=== PATIENT | male | born 1960 | race Hispanic/Latino ===

== ENCOUNTER 2017-06-07 09:10 | Emergency (ER) | payer SELFPAY ==
[2017-06-07 10:00] VITALS: BP 148/59
--- NOTE | 2017-06-07 12:05 | Emergency Department Report ---
ED Extremity Problem HPI - General Chief complaint: Extremity Injury, Lower Stated complaint: RIGHT FOOT PAIN Time Seen by Provider: 06/07/17 11:51 Source: patient Mode of arrival: Ambulatory Limitations: Physical Limitation - History of Present Illness Initial comments: Patient here reported that he had injury to his left great toe 18 days ago where 800 pound equipment fell on his left great toe. He said he was wearing boots but it was not a steel toe boots. Patient states saw his primary care physician and was told that toenail needs to be removed so he is here to have is left great toenail removed. Patient did not have a x-ray after incident occurred. He reports pain is 4-10 worst of movement better with resting. He said he takes [id number] pain medication. He said his primary care put him on Keflex for 7 days after the accident. Denies any fever or chills. Denies any radiation of pain up to his foot, ankle leg. He said he had a tetanus shot 5 years ago. MD Complaint: extremity pain, other (pain to left great toenail, nailbed injury) Onset/Timin -: days(s) Location: left, toe (left great toe) -: No myalgia, Yes arthralgia, No fever, No associated chest pain Radiation: none Severity scale (0 -10): 5 Quality: other (throbbing) Consistency: intermittent Improves with: immobilization, rest Worsens with: weight bearing, walking, palpation Associated Symptoms: arthralgias, other (left great toe with nail damage and infection). denies: chest pain, shortness of breath, myalgias - Related Data Home Medications Medication Instructions Recorded Confirmed Last Taken Cyclobenzaprine HCl [Flexeril] 1 tab PO QHS PRN 10/17/13 10/17/13 10/15/13 21:00 HYDROcodone/APAP 5-325 [[place] 1 tab PO Q4-6H PRN 10/17/13 10/17/13 10/17/13 06: 00 5-325 mg TAB] Previous Rx's Medication Instructions Recorded Last Taken Type Sulfamethoxazole/Trimethoprim 1 each PO BID 10 Days #20 tablet 06/07/17 Unknown Rx [Bactrim DS TAB] traMADol [Ultram] 50 mg PO Q6HR PRN 4 Days #20 tablet 06/07/17 Unknown Rx Allergies Allergy/AdvReac Type Severity Reaction Status Date / Time No Known Allergies Allergy Verified 06/07/17 09:54 ED Review of Systems ROS: Stated complaint: RIGHT FOOT PAIN Other details as noted in HPI Comment: All other systems reviewed and negative Constitutional: no symptoms reported Respiratory: no symptoms reported Cardiovascular: denies: chest pain, palpitations, dyspnea on exertion, edema, syncope Gastrointestinal: denies: abdominal pain, nausea, vomiting Musculoskeletal: arthralgia, other (left great toe pain). denies: back pain, joint swelling, myalgia Skin: change in hair/nails (left great toe), other (left great toe infection) Neurological: denies: headache, weakness, numbness, paresthesias, confusion, abnormal gait, vertigo ED Past Medical Hx - Past Medical History Previous Medical History?: Yes Hx Hypertension: Yes - Surgical History Past Surgical History?: Yes Additional Surgical History: right knee surgery 1986 - Family History Family history: hypertension - Social History Smoking Status: Current Every Day Smoker Substance Use Type: Alcohol - Medications Home Medications: Home Medications Medication Instructions Recorded Confirmed Last Taken Type Cyclobenzaprine HCl [Flexeril] 1 tab PO QHS PRN 10/17/13 10/17/13 10/15/13 21: 00 History HYDROcodone/APAP 5-325 [[place] 1 tab PO Q4-6H PRN 10/17/13 10/17/13 10/17/13 06: 00 History 5-325 mg TAB] Sulfamethoxazole/Trimethoprim 1 each PO BID 10 Days #20 tablet 06/07/17 Unknown Rx [Bactrim DS TAB] traMADol [Ultram] 50 mg PO Q6HR PRN 4 Days #20 tablet 06/07/17 Unknown Rx ED Physical Exam - General Limitations: No Limitations General appearance: alert, in no apparent distress - Head Head exam: Present: atraumatic, normocephalic, normal inspection - Eye Eye exam: Present: normal appearance, PERRL, EOMI Pupils: Present: normal accommodation - Neck Neck exam: Present: normal inspection, full ROM, other (no C-spine tenderness). Absent: tenderness, meningismus, lymphadenopathy, thyromegaly - Respiratory Respiratory exam: Present: normal lung sounds bilaterally. Absent: respiratory distress, chest wall tenderness - Cardiovascular Cardiovascular Exam: Present: regular rate, normal rhythm, normal heart sounds. Absent: systolic murmur, diastolic murmur - GI/Abdominal GI/Abdominal exam: Present: soft, normal bowel sounds. Absent: distended, tenderness, guarding, rebound, rigid - Extremities Exam Extremities exam: Present: normal inspection, full ROM, tenderness (tender to palpate the left great toe), normal capillary refill, other (no clubbing, cyanosis or edema to extremities. +2 pulses to all extremities. No neurovascular compromise.). Absent: pedal edema, joint swelling, calf tenderness - Expanded Lower Extremity Exam Left Hip exam: Present: normal inspection, full ROM, pelvic stability. Absent: tenderness, swelling, abrasion, laceration, ecchymosis, deformity, crepidus, dislocation, erythema, external rotation, internal rotation, shortening Upper Leg exam: Present: normal inspection, full ROM. Absent: tenderness, swelling, abrasion, laceration, ecchymosis, deformity, crepidus, dislocation, erythema Knee exam: Present: normal inspection, full ROM, full knee extension. Absent: tenderness, swelling, abrasion, laceration, ecchymosis, deformity, crepidus, dislocation, erythema, effusion, pain w/ pronation/supination, posterior draw sign, pain/laxity with valgus, pain/laxity with varus Lower Leg exam: Present: normal inspection, full ROM. Absent: tenderness, swelling, abrasion, laceration, ecchymosis, deformity, crepidus, dislocation, erythema, palpable cord, Michel's sign Ankle exam: Present: normal inspection, full ROM. Absent: tenderness, swelling , abrasion, laceration, ecchymosis, deformity, crepidus, dislocation, erythema Foot/Toe exam: Present: full ROM (patient with full range of motion but painful with movement to left great toe), tenderness (around left great toe F great toe) , swelling (left great toe), erythema, nail avulsion (left great toe with nail injury. Upon removal of dressing to left great toe, nail came off with dressing. Nailbed cellulitis. Tender to palpate. No drainage. Swelling surrounding the left great toe). Absent: normal inspection (great toe with infection), abrasion, laceration, ecchymosis, deformity, crepidus, dislocation, amputation, puncture wound, foreign body, calcaneal tenderness, tenderness at base of 5th metatarsal Neuro vascular tendon exam: Present: no vascular compromise. Absent: pulse deficit, abnormal cap refill, motor deficit, sensory deficit, tendon deficit, extremity cold to touch, pallor, abnormal 2-point discrimination, decreased fine /light touch, foot drop, peroneal nerve deficit, significant pain with passive ROM of distal joint Gait: Positive: observed and limited by pain - Back Exam Back exam: Present: normal inspection, full ROM. Absent: tenderness, CVA tenderness (R), CVA tenderness (L), muscle spasm, paraspinal tenderness, vertebral tenderness, rash noted - Neurological Exam Neurological exam: Present: alert, oriented X3, normal gait, reflexes normal. Absent: motor sensory deficit - Psychiatric Psychiatric exam: Present: normal affect, normal mood - Skin Skin exam: Present: warm, dry, ecchymosis (.), other (patient with nail to left great toe avulsion, nail bed erythema, tender to palpate, swelling around the left great toe). Absent: rash, cyanosis, petechiae, pallor, abrasion - Expanded Skin Exam Expanded Type of lesion: Present: other (cellulitis left great toe) Distribution of rash: other (left great toe) Description of rash: Present: tenderness, erythematous, swelling. Absent: bullous, petechial, purpuic, urticarial, crusting, discharge, fluctuant, indurated ED Course Vital Signs 06/07/17 09:54 Temperature 98.5 F Pulse Rate 95 H Respiratory 17 Rate Blood Pressure 148/59 O2 Sat by Pulse 100 Oximetry - Reevaluation(s) Reevaluation #1: 06/07/17 14:24 Patient given clindamycin 600 mg IM, Boostrix 0.5 mL in emergency room without any adverse reaction. - Orthopedic Splinting/Casting Injury #1 Side: left Lower Extremity Injury Location: foot, toe Lower Extremity Immobilizer: post-op shoe Additional Comments: Pedal Pulses are 2+ without any neurovascular compromise to the left great toe. ED Medical Decision Making - Radiology Data Radiology results: report reviewed X-ray of right foot reveals subacute traumatic closed avulsion fracture of the terminal tuft of the distal phalanx of the great toe just consistent with patient injury 18 days ago. - Medical Decision Making ED course: She presents into the emergency room for injury to right great toe. He reports pain and was sent to the emergency room by his primary care physician to have nail removed from right great toe. Upon removing dressing from the right great toe, noted that nail that came off with dressing removal. Right gait toe appears infected, with redness, swelling to nail bed and also around toe. Pt with bony tenderness to right great toe. X-ray revealed the patient has subacute traumatic close avulsion fracture of tuft of the distal findings of right great toe. Patient was given clindamycin 600 mg IM and booster 0.5 mL IM in emergency room without any adverse reaction. I spoke with Dr. Barraza regarding patient presentation, complaints, x-ray findings and he directed me to call language specialist. I spoke with Dr. Sanchez who is the language specialist on-call and he wants patient to call his office for follow-up visit and also wants patient to have a postop shoe. Postop shoe provided C procedure note for detail. I discussed the patient that he'll need to follow up with Dr. Sanchez regarded in further evaluation and treatment. Patient voiced understanding of diagnosis and treatment plan and discharged home with prescription for Bactrim DS and Ultram. Patient had right great toe soaked, cleansed with saline, Neosporin ointment applied followed by Xeroform and gauze dressing. Critical care attestation.: If time is entered above; I have spent that time in minutes in the direct care of this critically ill patient, excluding procedure time. ED Disposition Clinical Impression: Cellulitis of great toe, right, Other fracture of right great toe, initial encounter for closed fracture, Avulsion of toenail of right foot, Pain of right great toe Disposition: DC-01 TO HOME OR SELFCARE Is pt being admited?: No Does the pt Need Aspirin: No Condition: Stable Instructions: Arthralgia (ED), Toe Fracture (ED), Cellulitis (ED) Additional Instructions: Please follow up with primary care as recommended Increase fluid intake Take medication as prescribed . please do not drive or operate heavy machinery while taking Ultram as this medication causes drowsiness These follow-up with orthopedic doctor or language specialist who is a specialist for further evaluation and treatment . Referred to discharge instruction for acute wound care Please keep affected area clean and dry Take antibiotic as prescribed Please return to emergency room if you develop increasing redness, streaking, fever, difficulty moving in and the left forearm and increase in pain. Prescriptions: Sulfamethoxazole/Trimethoprim [Bactrim DS TAB] 1 each PO BID 10 Days #20 tablet traMADol [Ultram] 50 mg PO Q6HR PRN 4 Days #20 tablet PRN Reason: Pain Referrals: JESSICA SANCHEZ DPM [Staff Physician] - 2-3 Days ALEXANDER BARRIGA MD [Staff Physician] - 2-3 Days your, primary care physician [Other] - 2-3 Days Forms: Work/School Release Form(ED)
--- NOTE | 2017-06-07 13:13 | XRay Report ---
X-RAY RIGHT FOOT 2 VIEWS: 06/07/17 12:05:00 CLINICAL: Trauma to the great toe. An 800 pound object fell on his toe eighteen days ago. FINDINGS: Avulsion fracture of the medial aspect of the terminal tuft of the great toe. No other fracture. There is soft tissue swelling. No soft tissue air or foreign body. The joint spaces of the great toe are normal. IMPRESSION: Subacute traumatic closed avulsion fracture of the terminal tuft of the distal phalanx of the great toe.
[2017-06-07] MEDS ORDERED: CLEOCIN IM ONE (13:36)
[2017-06-07] MEDS ORDERED: BOOSTRIX IM ONE (13:51)
[2017-06-07] MEDS ORDERED: TRIPLE ANTIBIOTIC TP ONE (13:52)
== END 2017-06-07 15:19 | disposition home or self-care (01) ==
LOC: ED 09:10
DX: S91.201A Unspecified open wound of right great toe with damage to nail, initial encounter (principal); L03.031 Cellulitis of right toe; I10 Essential (primary) hypertension; F17.200 Nicotine dependence, unspecified, uncomplicated; S92.421A Displaced fracture of distal phalanx of right great toe, initial encounter for closed fracture; W31.89XA Contact with other specified machinery, initial encounter; Y93.89 Activity, other specified; Y92.89 Other specified places as the place of occurrence of the external cause; Y99.8 Other external cause status
CPT/HCPCS: 90471; 90715; 96372; 99283; A6250

== ENCOUNTER 2019-04-11 09:15 | Observation (INO) | payer OTHER, SELFPAY ==
[2019-04-11] MEDS ORDERED: SODIUM CHLORIDE 0.9% 1000 ML 1,000 ML IV ONE (10:18)
[2019-04-11] MEDS ORDERED: ONDANSETRON 4 MG/2 ML INJ IV ONE (10:18)
[2019-04-11] MEDS ORDERED: MORPHINE 4 MG/1 ML INJ IV ONE (10:31)
--- NOTE | 2019-04-11 10:33 | Emergency Department Report ---
ED Abdominal Pain HPI - General Chief Complaint: Abdominal Pain Stated Complaint: BODY PAIN/NOT EATING Time Seen by Provider: 04/11/19 10:17 Source: patient Mode of arrival: Wheelchair Limitations: No Limitations - History of Present Illness Initial Comments: 58-year-old male with hypertension and throat cancer currently in remission treated with radiation therapy in December presents to the hospital complaints of abdominal pain and nausea 4-5 weeks. Patient complains of intermittent sharp abdominal pains that start in the mid abdomen and radiates throughout. Pain is worse with palpation. No alleviating factors reported. Positive nausea without vomiting. Patient has decreased by mouth intake due to nausea and has been trying to drink protein drinks. He denies that eating makes the pain worse. No complaints of fever, dysuria, urinary retention, diarrhea, melena, or hematochezia. He denies history of previous abdominal surgeries. Patient also complains of injury to his left middle finger after fall 5 weeks ago. Finger is swollen and deformed but nonpainful. Patient has never had him evaluated by a doctor since initial injury. Severity scale (0 -10): 10 - Related Data Home Medications Medication Instructions Recorded Confirmed Last Taken Cyclobenzaprine HCl [Flexeril] 1 tab PO QHS PRN 10/17/13 10/17/13 10/15/13 21:00 HYDROcodone/APAP 5-325 [[place] 1 tab PO Q4-6H PRN 10/17/13 10/17/13 10/17/13 06:00 5-325 mg TAB] Previous Rx's Medication Instructions Recorded Last Taken Type Sulfamethoxazole/Trimethoprim 1 each PO BID 10 Days #20 tablet 06/07/17 Unknown Rx [Bactrim DS TAB] traMADol [Ultram] 50 mg PO Q6HR PRN 4 Days #20 tablet 06/07/17 Unknown Rx Allergies Allergy/AdvReac Type Severity Reaction Status Date / Time No Known Allergies Allergy Verified 06/07/17 09:54 ED Review of Systems ROS: Stated complaint: BODY PAIN/NOT EATING Other details as noted in HPI Comment: All other systems reviewed and negative ED Past Medical Hx - Past Medical History Hx Hypertension: Yes - Surgical History Additional Surgical History: right knee surgery 1986 - Social History Smoking Status: Current Every Day Smoker Substance Use Type: Alcohol - Medications Home Medications: Home Medications Medication Instructions Recorded Confirmed Last Taken Type Cyclobenzaprine HCl [Flexeril] 1 tab PO QHS PRN 10/17/13 10/17/13 10/15/13 21:00 History HYDROcodone/APAP 5-325 [[place] 1 tab PO Q4-6H PRN 10/17/13 10/17/13 10/17/13 06:00 History 5-325 mg TAB] Sulfamethoxazole/Trimethoprim 1 each PO BID 10 Days #20 tablet 06/07/17 Unknown Rx [Bactrim DS TAB] traMADol [Ultram] 50 mg PO Q6HR PRN 4 Days #20 tablet 06/07/17 Unknown Rx ED Physical Exam - General Limitations: No Limitations - Other Other exam information: Gen.: No acute distress Head: Atraumatic Eyes: Normal appearance, nonicteric sclera ENT: Moist mucous membranes Neck: Normal appearance, no posterior midline tenderness, no meningismus Chest: Clear to auscultation bilaterally Cardiovascular: Tachycardic regular rhythm Abdomen: Normal appearance, soft, mid and lower abdominal tenderness, no rebound or guarding, normal bowel sounds Back: Normal appearance, nontender Extremity: Left middle finger swelling starting at the P I P joint with deformity. Nontender, no warmth or erythema. Very limited Limited flexion and extension Neuro: Alert, oriented 3 clear speech, no focal motor or sensory deficit Psychiatric: Appropriate Skin: No rash ED Course Vital Signs 04/11/19 04/11/19 04/11/19 09:25 10:14 11:00 Temperature 98.1 F Pulse Rate 119 H 98 H Respiratory 18 14 Rate Blood Pressure 159/109 Blood Pressure 130/94 [Left] O2 Sat by Pulse 99 99 100 Oximetry 04/11/19 04/11/19 04/11/19 12:00 12:35 12:37 Temperature 98.3 F Pulse Rate 92 H 81 Respiratory 15 15 15 Rate Blood Pressure 164/93 Blood Pressure 145/95 [Left] O2 Sat by Pulse 98 99 99 Oximetry ED Medical Decision Making - Lab Data Result diagrams: 04/11/19 10:37 04/11/19 10:37 Lab Results 04/11/19 04/11/19 04/11/19 Range/Units 10:37 10:37 12:37 WBC 6.7 (4.5-11.0) K/mm3 RBC 4.51 (3.65-5.03) M/mm3 Hgb 14.8 (11.8-15.2) gm/dl Hct 43.8 (35.5-45.6) % MCV 97 H (84-94) fl MCH 33 H (28-32) pg MCHC 34 (32-34) % RDW 15.8 H (13.2-15.2) % Plt Count 457 H (140-440) K/mm3 Lymph % (Auto) 5.2 L (13.4-35.0) % Daniels % (Auto) 8.7 H (0.0-7.3) % Eos % (Auto) 1.7 (0.0-4.3) % Baso % (Auto) 1.0 (0.0-1.8) % Lymph # 0.3 L (1.2-5.4) K/mm3 Daniels # 0.6 (0.0-0.8) K/mm3 Eos # 0.1 (0.0-0.4) K/mm3 Baso # 0.1 (0.0-0.1) K/mm3 Seg Neutrophils % 83.4 H (40.0-70.0) % Seg Neutrophils # 5.6 (1.8-7.7) K/mm3 Sodium 139 (137-145) mmol/L Potassium 5.0 (3.6-5.0) mmol/L Chloride 99.2 (98-107) mmol/L Carbon Dioxide 24 (22-30) mmol/L Anion Gap 21 mmol/L BUN 10 (9-20) mg/dL Creatinine 0.7 L (0.8-1.5) mg/dL Estimated GFR > 60 ml/min BUN/Creatinine Ratio 14 % Glucose 108 H (75-100) mg/dL Calcium 9.7 (8.4-10.2) mg/dL Magnesium 2.20 (1.7-2.3) mg/dL Total Bilirubin 0.30 (0.1-1.2) mg/dL AST 12 (5-40) units/L ALT 10 (7-56) units/L Alkaline Phosphatase 81 (35-129) units/L Total Protein 7.7 (6.3-8.2) g/dL Albumin 4.1 (3.9-5) g/dL Albumin/Globulin Ratio 1.1 % Lipase 23 (13-60) units/L Urine Color Straw (Yellow) Urine Turbidity Clear (Clear) Urine pH 7.0 (5.0-7.0) Ur Specific [place] 1.005 (1.003-1.030) Urine Protein <15 mg/dl (Negative) mg/dL Urine Glucose (UA) Neg (Negative) mg/dL Urine Ketones Neg (Negative) mg/dL Urine Blood Neg (Negative) Urine Nitrite Neg (Negative) Urine Bilirubin Neg (Negative) Urine Urobilinogen < 2.0 (<2.0) mg/dL Ur Leukocyte Esterase Neg (Negative) Urine WBC (Auto) 1.0 (0.0-6.0) /HPF Urine RBC (Auto) 1.0 (0.0-6.0) /HPF U Epithel Cells (Auto) < 1.0 (0-13.0) /HPF Urine Bacteria (Auto) 1+ (Negative) /HPF - Radiology Data Radiology results: report reviewed CT ABDOMEN AND PELVIS WITH CONTRAST HISTORY: Abdominal pain and nausea for one day COMPARISON: None. TECHNIQUE: Axial CT images were obtained through the abdomen and pelvis after 100 cc of Omnipaque 300 intravenously. Sagittal and coronal reformatted images. All CT scans at this location are performed using CT dose reduction for [employer] by means of automated exposure control. FINDINGS: CT ABDOMEN: Lung Bases: Clear. Liver: No significant abnormality. Biliary: No significant abnormality. Spleen: No significant abnormality. Unenlarged. Pancreas: No significant abnormality. Adrenals: No significant abnormality. Kidneys: No significant abnormality. Lymphatics: No lymphadenopathy. Vasculature: Mild to moderate distal aortic and iliac calcifications. No aneurysm Bowel/Peritoneum: There is impressive thickening of the gastric mucosa particularly in the proximal stomach. There appears to be an area of ulceration in the posterior gastric wall measuring 2-3 cm in diameter. There is no evidence for obstruction, free air or abscess. Small bowel loops and colon are normal caliber. There are a few scattered diverticula in the cecum and ascending colon. No acute inflammation. Normal appendix. CT PELVIS: : The bladder, distal ureters and prostate gland are unremarkable. Osseous Structures: Mild thoracolumbar spondylosis. No fracture or suspicious bony lesion. Additional Findings: None IMPRESSION: Abnormal stomach. There is impressive gastric mucosal thickening consistent with gastritis. An ulcer is suspected in the posterior gastric wall as described. No obvious signs of perforation at this time. These findings appear to be related to peptic ulcer disease. Gastric neoplasm is thought less likely but is not entirely excluded. - Medical Decision Making Patient's tachycardia improved with IV fluids. Patient also received morphine [address] shows stomach abnormality consistent with gastritis, versus gastric ulcer versus stomach cancer. Iv protonix x 1 given. Case discussed with GI. Requests nothing by mouth after midnight with plan to scope in a.m. - Differential Diagnosis diverticulitis, gastritis, peptic ulcer disease Critical Care Time: No Critical care attestation.: If time is entered above; I have spent that time in minutes in the direct care of this critically ill patient, excluding procedure time. ED Disposition Clinical Impression: Gastritis, Abdominal pain, Dehydration, Abnormal CT of the abdomen Disposition: DC-09 OP ADMIT IP TO THIS HOSP Is pt being admited?: No Condition: Stable Time of Disposition: 14:39 (Dr Christopher/hospitalist)
[2019-04-11] MEDS ORDERED: MORPHINE 2 MG/1 ML INJ ONE (10:43)
[2019-04-11] MEDS ORDERED: MORPHINE 2 MG/1 ML INJ IV ONE (10:54)
[2019-04-11 11:08] LABS: Basophils # (Auto) 0.1 K/mm3 (0.0-0.1); Eosinophils # (Auto) 0.1 K/mm3 (0.0-0.4); Eosinophils % (Auto) 1.7 % (0.0-4.3); Hematocrit 43.8 % (35.5-45.6); Hemoglobin 14.8 gm/dl (11.8-15.2); Lymphocytes # (Auto) 0.3 K/mm3 (1.2-5.4); Lymphocytes % (Auto) 5.2 % (13.4-35.0); Mean Corpuscular HGB Conc 34 % (32-34); Mean Corpuscular Volume 97 fl (84-94); Monocytes # (Auto) 0.6 K/mm3 (0.0-0.8); Monocytes % (Auto) 8.7 % (0.0-7.3); Platelet Count 457 K/mm3 (140-440); Red Blood Count 4.51 M/mm3 (3.65-5.03); Red Cell Distribution Width 15.8 % (13.2-15.2)
[2019-04-11 11:30] LABS: Alanine Aminotransferase 10 units/L (7-56); Albumin 4.1 g/dL (3.9-5); BUN/Creatinine Ratio 14; Blood Urea Nitrogen 10 mg/dL (9-20); Calcium 9.7 mg/dL (8.4-10.2); Hemolysis Index 7
[2019-04-11 14:02] LABS: Bacteria,Urine 1+ /HPF (Negative); Bilirubin,Urine NEG (Negative); Blood,Urine NEG (Negative); Color,Urine Straw (Yellow); Protein,Urine <15 mg/dL mg/dL (Negative); Urobilinogen,Urine < 2.0 mg/dL (<2.0)
--- NOTE | 2019-04-11 14:08 | Cat Scan Report ---
CT ABDOMEN AND PELVIS WITH CONTRAST HISTORY: Abdominal pain and nausea for one day COMPARISON: None. TECHNIQUE: Axial CT images were obtained through the abdomen and pelvis after 100 cc of Omnipaque 300 intravenously. Sagittal and coronal reformatted images. All CT scans at this location are performed using CT dose reduction for [employer] by means of automated exposure control. FINDINGS: CT ABDOMEN: Lung Bases: Clear. Liver: No significant abnormality. Biliary: No significant abnormality. Spleen: No significant abnormality. Unenlarged. Pancreas: No significant abnormality. Adrenals: No significant abnormality. Kidneys: No significant abnormality. Lymphatics: No lymphadenopathy. Vasculature: Mild to moderate distal aortic and iliac calcifications. No aneurysm Bowel/Peritoneum: There is impressive thickening of the gastric mucosa particularly in the proximal s tomach. There appears to be an area of ulceration in the posterior gastric wall measuring 2-3 cm in d iameter. There is no evidence for obstruction, free air or abscess. Small bowel loops and colon are n ormal caliber. There are a few scattered diverticula in the cecum and ascending colon. No acute infla mmation. Normal appendix. CT PELVIS: : The bladder, distal ureters and prostate gland are unremarkable. Osseous Structures: Mild thoracolumbar spondylosis. No fracture or suspicious bony lesion. Additional Findings: None IMPRESSION: Abnormal stomach. There is impressive gastric mucosal thickening consistent with gastritis. An ulcer is suspected in the posterior gastric wall as described. No obvious signs of perforation at this angel e. These findings appear to be related to peptic ulcer disease. Gastric neoplasm is thought less like ly but is not entirely excluded. Signer Name: Peter Cuevas Jr, MD Signed: 04/11/2019 2:04 PM Workstation Name: [id number]
[2019-04-11] MEDS ORDERED: PANTOPRAZOLE 40 MG INJ IV ONE (14:18)
--- NOTE | 2019-04-11 15:07 | History and Physical Report ---
History of Present Illness Chief complaint: My stomach hurts History of present illness: 58 YO Male with HTN, Oral Cancer S/P Radiation Therapy,Nicotine Dependence, Malnutrition presents to ED for evaluation. Pt states that he has experienced abdominal pain over the past 4-5 weeks. Pt states that pain is intermittent. 6- 10/10, located in the hypogastric area, and radiates throughout his entire abdomen, associated with nausea. Pt acknowledges 25lbs weight loss over the past 6 weeks. Pt states that pain is worse with palpation. Pt transported to [facility] via private vehicle. Pt seen and evaluated in ED and found to have abnormality on CT scan of the abdomen. Pt placed in observation status. GI consulted in ED. Pt pen ding endoscopy in AM. Pt denies fever, dysuria, chills, chest pain, palpitations, NVD, Melena, or hematochezia. No prior admission for review. No medication listed for reconciliation at time of admission. Past History Past Medical History: cancer, hypertension Past Surgical History: total knee replacement Social history: , smoking Family history: hypertension Medications and Allergies Allergies Allergy/AdvReac Type Severity Reaction Status Date / Time No Known Allergies Allergy Verified 06/07/17 09:54 Home Medications Medication Instructions Recorded Confirmed Last Taken Type Bisoprolol/Hctz [Ziac 2.5-6.25] 1 each PO DAILY 04/11/19 04/11/19 04/02/19 History LORazepam [Ativan] 1 mg PO QHS 04/11/19 04/11/19 04/02/19 History Review of Systems Constitutional: weight loss, no weight gain, no fever, no chills Ears, nose, mouth and throat: no ear pain, no ear discharge, no tinnitis, no decreased hearing, no nose pain, no nasal congestion Cardiovascular: no chest pain, no orthopnea, no rapid/irregular heart beat, no edema, no syncope Respiratory: no cough, no cough with sputum, no excessive sputum, no hemoptysis, no dyspnea on exertion Gastrointestinal: abdominal pain, nausea, no diarrhea, no constipation, no change in bowel habits, no hematemesis, no melena, no hematochezia, no loss of appetite Genitourinary Male: no hematuria, no flank pain, no discharge, no urinary frequency, no urinary hesitancy, no nocturia Rectal: no pain, no incontinence, no bleeding Musculoskeletal: no neck stiffness, no neck pain, no shooting arm pain, no arm numbness/tingling, no low back pain, no leg numbness/tingling Integumentary: no rash, no pruritis, no redness, no wounds, no jaundice, no blisters Neurological: no head injury, no transient paralysis, no weakness, no parathesias, no tingling Psychiatric: no anxiety, no memory loss, no change in sleep habits, no sleep disturbances, no insomnia, no hypersomnia, no change in appetite, no suicidal ideation Hematologic/Lymphatic: no easy bruising, no easy bleeding, no lymphadenopathy, no lymphedema Allergic/Immunologic: no urticaria, no allergic rhinitis, no persistent infections, no angioedema Exam - Constitutional Vitals: Temp Pulse Resp BP Pulse Ox 98.3 F 81 15 145/95 99 04/11/19 12:35 04/11/19 12:35 04/11/19 12:37 04/11/19 12:35 04/11/19 12:37 General appearance: Present: mild distress, cachectic - EENT Eyes: Present: PERRL ENT: hearing intact, clear oral mucosa - Neck Neck: Present: supple, normal ROM - Respiratory Respiratory effort: normal Respiratory: bilateral: CTA - Cardiovascular Heart Sounds: Present: S1 & S2. Absent: rub, click - Extremities Extremities: pulses symmetrical, No edema Peripheral Pulses: within normal limits - Abdominal General gastrointestinal: Present: soft, non-tender, non-distended, normal bowel sounds Male genitourinary: Present: normal - Integumentary Integumentary: Present: clear, warm, dry - Musculoskeletal Musculoskeletal: gait normal, strength equal bilaterally - Psychiatric Psychiatric: appropriate mood/affect, intact judgment & insight - Neurologic Neurologic: CNII-XII intact, moves all extremities Results - Labs CBC & Chem 7: 04/11/19 10:37 04/11/19 10:37 Labs: Abnormal lab results 04/11/19 04/11/19 Range/Units 10:37 10:37 MCV 97 H (84-94) fl MCH 33 H (28-32) pg RDW 15.8 H (13.2-15.2) % Plt Count 457 H (140-440) K/mm3 Lymph % (Auto) 5.2 L (13.4-35.0) % [place] % (Auto) 8.7 H (0.0-7.3) % Lymph # 0.3 L (1.2-5.4) K/mm3 Seg Neutrophils % 83.4 H (40.0-70.0) % Creatinine 0.7 L (0.8-1.5) mg/dL Glucose 108 H (75-100) mg/dL Assessment and Plan - Patient Problems (1) Malnutrition Current Visit: Yes Status: Acute Qualifiers: Protein-calorie malnutrition severity: severe Plan to address problem: Encourage increased protein intake, dietary supplementation. (2) Nicotine dependence Current Visit: Yes Status: Acute Qualifiers: Substance use status: in withdrawal Plan to address problem: Smoking cessation counseling,+15 minutes. supportive care. (3) Abdominal pain Current Visit: Yes Status: Acute Qualifiers: Abdominal location: generalized Qualified Code(s): R10.84 - Generalized abdominal pain Plan to address problem: Serial abdominal exam, supportive care, CT Abdomen pelvis, GI consulted in ED, (4) Abnormal CT of the abdomen Current Visit: Yes Status: Acute Plan to address problem: CT Abdomen/Pelvis, pain control, NPO after midnight, pending endoscopy in AM. (5) Gastritis Current Visit: Yes Status: Acute Qualifiers: Gastritis type: other gastritis Plan to address problem: GI consulted, Endoscopy in AM. (6) DVT prophylaxis Current Visit: Yes Status: Acute Plan to address problem: SCD to BLE while in bed. Pt ambulatory
[2019-04-11] MEDS ORDERED: ACETAMINOPHEN 325 MG TAB PO PRN (15:09)
[2019-04-11] MEDS ORDERED: ALBUTEROL 2.5 MG/3 ML NEBU IH PRN (15:09)
[2019-04-11] MEDS ORDERED: ONDANSETRON 4 MG/2 ML INJ IV PRN (15:09)
--- NOTE | 2019-04-11 15:14 | XRay Report ---
Left fingers, 3 views INDICATION: middle finger injury 5 weeks ago. COMPARISON: None. IMPRESSION: Severe osteopenia. Posterior dislocation is identified at the PIP joint of the third di git. There is no obvious associated fracture. The remaining joint spaces are anatomic in alignment al though mild diffuse osteoarthritic changes are noted. The soft tissues are unremarkable. Signer Name: Peter Cuevas Jr, MD Signed: 04/11/2019 3:10 PM Workstation Name: [id number]
--- NOTE | 2019-04-11 19:59 | Gastroenterology Consultation ---
History of Present Illness - Reason for Consult Consult date: 04/11/19 abdominal pain, abnormal CT scan Requesting physician: GENEVIEVE HEATON - History of Present Illness This is a 58 yo male with pmh of tobacco use, throat cancer s/p radiation (last one in December 2018 and in remission per patient) presenting to the ED for worsening abdominal pain for past 4-5 weeks. Reports having mid and epigastric pain intermittently with sharp poking pain all over the abdomen. No associated vomiting but constant nausea. No diarrhea or blood in the stool. He has lost weight during this time. CT in the ED showed diffuse gastric wall thickening and signs of possible ulcer. No prior EGD or colonoscopy. Denies NSAID use. No family hx of GI cancer known. Medication list reviewed. Past History Past Medical History: cancer, hypertension Past Surgical History: total knee replacement Social history: , smoking Family history: hypertension Medications and Allergies Allergies Allergy/AdvReac Type Severity Reaction Status Date / Time No Known Allergies Allergy Verified 06/07/17 09:54 Home Medications Medication Instructions Recorded Confirmed Last Taken Type Bisoprolol/Hctz [Ziac 2.5-6.25] 1 each PO DAILY 04/11/19 04/11/19 04/02/19 History LORazepam [Ativan] 1 mg PO QHS 04/11/19 04/11/19 04/02/19 History Active Meds: Active Medications Acetaminophen (Tylenol) 650 mg PO Q4H PRN PRN Reason: Pain MILD(1-3)/Fever >100.5/DONIS Albuterol (Proventil) 2.5 mg IH Q4HRT PRN PRN Reason: Shortness Of Breath Ondansetron HCl (Zofran) 4 mg IV Q8H PRN PRN Reason: Nausea And Vomiting Sodium Chloride (Sodium Chloride Flush Syringe 10 Ml) 10 ml IV BID LIONEL Sodium Chloride (Sodium Chloride Flush Syringe 10 Ml) 10 ml IV PRN PRN PRN Reason: LINE FLUSH Review of Systems - Review of Systems All systems: negative Constitutional: weight loss Cardiovascular: no chest pain Gastrointestinal: abdominal pain, nausea, no vomiting, no diarrhea, no constipation, no BRBPR, no melena Musculoskeletal: joint pain Exam - Constitutional Vital Signs: Temp Pulse Resp BP Pulse Ox 98.3 F 96 H 18 129/79 99 04/11/19 16:59 04/11/19 16:59 04/11/19 16:59 04/11/19 16:59 04/11/19 16:59 General appearance: no acute distress - EENT Eyes: EOM intact ENT: hearing intact - Neck Neck: supple - Respiratory Respiratory effort: normal - Cardiovascular Rhythm: regular Heart Sounds: Present: S1 & S2 - Gastrointestinal General gastrointestinal: Present: soft, tender, non-distended, normal bowel sounds - Integumentary Integumentary: Present: clear, warm - Neurologic Neurological: alert and oriented x3 - Labs CBC & Chem 7: 04/11/19 10:37 04/11/19 10:37 Lab Results: Laboratory Results - last 24 hr 04/11/19 04/11/19 04/11/19 10:37 10:37 12:37 WBC 6.7 RBC 4.51 Hgb 14.8 Hct 43.8 MCV 97 H MCH 33 H MCHC 34 RDW 15.8 H Plt Count 457 H Lymph % (Auto) 5.2 L [place] % (Auto) 8.7 H Eos % (Auto) 1.7 Baso % (Auto) 1.0 Lymph # 0.3 L [place] # 0.6 Eos # 0.1 Baso # 0.1 Seg Neutrophils % 83.4 H Seg Neutrophils # 5.6 Sodium 139 Potassium 5.0 Chloride 99.2 Carbon Dioxide 24 Anion Gap 21 BUN 10 Creatinine 0.7 L Estimated GFR > 60 BUN/Creatinine Ratio 14 Glucose 108 H Calcium 9.7 Magnesium 2.20 Total Bilirubin 0.30 AST 12 ALT 10 Alkaline Phosphatase 81 Total Protein 7.7 Albumin 4.1 Albumin/Globulin Ratio 1.1 Lipase 23 Urine Color Straw Urine Turbidity Clear Urine pH 7.0 Ur Specific [place] 1.005 Urine Protein <15 mg/dl Urine Glucose (UA) Neg Urine Ketones Neg Urine Blood Neg Urine Nitrite Neg Urine Bilirubin Neg Urine Urobilinogen < 2.0 Ur Leukocyte Esterase Neg Urine WBC (Auto) 1.0 Urine RBC (Auto) 1.0 U Epithel Cells (Auto) < 1.0 Urine Bacteria (Auto) 1+ Assessment and Plan # Abdominal pain # Nausea # Abnormal CT showing gastric wall thickening. - ddx including PUD, gastritis, cannot exclude gastric malignancy. Rec - will plan for EGD tomorrow. NPO MN. - recommend protonix PO. - will follow.
[2019-04-12 05:17] LABS: Basophils % (Auto) 0.7 % (0.0-1.8); Eosinophils # (Auto) 0.2 K/mm3 (0.0-0.4); Eosinophils % (Auto) 4.8 % (0.0-4.3); Hematocrit 35.5 % (35.5-45.6); Lymphocytes # (Auto) 0.4 K/mm3 (1.2-5.4); Lymphocytes % (Auto) 7.8 % (13.4-35.0); Mean Corpuscular HGB Conc 34 % (32-34); Mean Corpuscular Volume 98 fl (84-94); Monocytes # (Auto) 0.6 K/mm3 (0.0-0.8); Monocytes % (Auto) 12.5 % (0.0-7.3); Platelet Count 429 K/mm3 (140-440); Red Blood Count 3.64 M/mm3 (3.65-5.03); Red Cell Distribution Width 15.9 % (13.2-15.2)
[2019-04-12 05:59] LABS: Alanine Aminotransferase 8 units/L (7-56); Albumin 3.4 g/dL (3.9-5); BUN/Creatinine Ratio 10; Blood Urea Nitrogen 7 mg/dL (9-20); Calcium 8.7 mg/dL (8.4-10.2); Hemolysis Index 3
--- NOTE | 2019-04-12 07:56 | Progress Note ---
Assessment and Plan Assessment and plan: 58-year-old man with history of hypertension and thyroid cancer in remission. Patient presents to the hospital with nausea and abdominal pain x5 weeks. Is complaining of sharp pain in the mid abdomen that radiates all over his abdomen., Poor p.o. intake. He admits to pain to his left middle finger after a fall/trauma to his last week 5 weeks ago, it has been swollen and deformed but not painful. He admits he has not seen a doctor since he got sick. Past medical history; hypertension, current everyday smoker CT abdomen and pelvis; shows gastric wall thickening Left fingers x-ray; severe osteopenia, posterior dislocations identified in the PIP joint of the third digit, there is no obvious fracture, the remaining joint spaces anatomic in alignment although mild diffuse osteoarthritic changes are noted, the soft tissues are unremarkable Abdominal pain and nausea; differential diagnosis includes PUD, gastritis, cannot exclude gastric malignancy -Plan for EGD today by GI, continue Protonix Left middle finger dislocation at [facility] Orthopedic surgery consult Moderate malnutrition Dietitian consult Tobacco abuse/dependence Smoking cessation counseling performed for 10 minutes, nicotine patches when necessary DVT prophylaxis Lovenox History Interval history: Review of systems Constitutional: No fevers, no malaise, no joint pains CVS: No chest pain, no orthopnea, no pedal edema GI: Continues to have nausea and mid abdominal pain which is essentially unchanged since he was admitted Respiratory: No shortness of breath, no wheezing, no coughing Hospitalist Physical - Physical exam Narrative exam: General.: Appears well,, nontoxic HEENT: Moist mucous membranes, extraocular muscles intact, no lymphadenopathy Neck: supple Cardiac: S1-S2 heard Lungs: clear to auscultation bilaterally Abdomen: soft , nontender, nondistended, bowel sounds positive Extremities: no edema clubbing or cyanosis Skin: no rash or lesions Neurologic: no gross focal deficits Psych: calm, and cooperative - Constitutional Vitals: Temp Pulse Resp BP Pulse Ox 98.9 F 94 H 16 119/84 97 04/12/19 05:20 04/12/19 05:20 04/12/19 05:20 04/12/19 05:20 04/12/19 05:20 General appearance: Present: mild distress, cachectic Results - Labs CBC & Chem 7: 04/12/19 04:55 04/12/19 04:55 Labs: Laboratory Last Values WBC 5.0 K/mm3 (4.5-11.0) 04/12/19 04:55 RBC 3.64 M/mm3 (3.65-5.03) L 04/12/19 04:55 Hgb 12.0 gm/dl (11.8-15.2) 04/12/19 04:55 Hct 35.5 % (35.5-45.6) D 04/12/19 04:55 MCV 98 fl (84-94) H 04/12/19 04:55 MCH 33 pg (28-32) H 04/12/19 04:55 MCHC 34 % (32-34) 04/12/19 04:55 RDW 15.9 % (13.2-15.2) H 04/12/19 04:55 Plt Count 429 K/mm3 (140-440) 04/12/19 04:55 Lymph % (Auto) 7.8 % (13.4-35.0) L 04/12/19 04:55 [place] % (Auto) 12.5 % (0.0-7.3) H 04/12/19 04:55 Eos % (Auto) 4.8 % (0.0-4.3) H 04/12/19 04:55 Baso % (Auto) 0.7 % (0.0-1.8) 04/12/19 04:55 Lymph # 0.4 K/mm3 (1.2-5.4) L 04/12/19 04:55 [place] # 0.6 K/mm3 (0.0-0.8) 04/12/19 04:55 Eos # 0.2 K/mm3 (0.0-0.4) 04/12/19 04:55 Baso # 0.0 K/mm3 (0.0-0.1) 04/12/19 04:55 Seg Neutrophils % 74.2 % (40.0-70.0) H 04/12/19 04:55 Seg Neutrophils # 3.7 K/mm3 (1.8-7.7) 04/12/19 04:55 Sodium 139 mmol/L (137-145) 04/12/19 04:55 Potassium 4.0 mmol/L (3.6-5.0) 04/12/19 04:55 Chloride 102.4 mmol/L (98-107) 04/12/19 04:55 Carbon Dioxide 22 mmol/L (22-30) 04/12/19 04:55 Anion Gap 19 mmol/L 04/12/19 04:55 BUN 7 mg/dL (9-20) L 04/12/19 04:55 Creatinine 0.7 mg/dL (0.8-1.5) L 04/12/19 04:55 Estimated GFR > 60 ml/min 04/12/19 04:55 BUN/Creatinine Ratio 10 % 04/12/19 04:55 Glucose 100 mg/dL (75-100) 04/12/19 04:55 Calcium 8.7 mg/dL (8.4-10.2) 04/12/19 04:55 Magnesium 2.20 mg/dL (1.7-2.3) 04/11/19 10:37 Total Bilirubin 0.30 mg/dL (0.1-1.2) 04/12/19 04:55 AST 11 units/L (5-40) 04/12/19 04:55 ALT 8 units/L (7-56) 04/12/19 04:55 Alkaline Phosphatase 62 units/L (35-129) 04/12/19 04:55 Total Protein 6.2 g/dL (6.3-8.2) L 04/12/19 04:55 Albumin 3.4 g/dL (3.9-5) L 04/12/19 04:55 Albumin/Globulin Ratio 1.2 % 04/12/19 04:55 Lipase 23 units/L (13-60) 04/11/19 10:37 Urine Color Straw (Yellow) 04/11/19 12:37 Urine Turbidity Clear (Clear) 04/11/19 12:37 Urine pH 7.0 (5.0-7.0) 04/11/19 12:37 Ur Specific [place] 1.005 (1.003-1.030) 04/11/19 12:37 Urine Protein <15 mg/dl mg/dL (Negative) 04/11/19 12:37 Urine Glucose (UA) Neg mg/dL (Negative) 04/11/19 12:37 Urine Ketones Neg mg/dL (Negative) 04/11/19 12:37 Urine Blood Neg (Negative) 04/11/19 12:37 Urine Nitrite Neg (Negative) 04/11/19 12:37 Urine Bilirubin Neg (Negative) 04/11/19 12:37 Urine Urobilinogen < 2.0 mg/dL (<2.0) 04/11/19 12:37 Ur Leukocyte Esterase Neg (Negative) 04/11/19 12:37 Urine WBC (Auto) 1.0 /HPF (0.0-6.0) 04/11/19 12:37 Urine RBC (Auto) 1.0 /HPF (0.0-6.0) 04/11/19 12:37 U Epithel Cells (Auto) < 1.0 /HPF (0-13.0) 04/11/19 12:37 Urine Bacteria (Auto) 1+ /HPF (Negative) 04/11/19 12:37 Active Medications - Current Medications Current Medications: Generic Name Dose Route Start Last Admin Trade Name Freq PRN Reason Stop Dose Admin Acetaminophen 650 mg 04/11/19 15:09 Tylenol PO Q4H PRN Pain MILD(1-3)/Fever >100.5/DONIS Albuterol 2.5 mg 04/11/19 15:09 Proventil IH Q4HRT PRN Shortness Of Breath Enoxaparin Sodium 40 mg 04/12/19 22:00 Lovenox SUB-Q QDAY@2200 LIONEL Sodium Chloride 1,000 mls @ 50 mls/hr 04/12/19 08:00 Nacl 0.9% 1000 Ml IV DIRECT LIONEL Ondansetron HCl 4 mg 04/11/19 15:09 Zofran IV Q8H PRN Nausea And Vomiting Pantoprazole Sodium 40 mg 04/12/19 10:00 Protonix PO QDAY LIONEL Sodium Chloride 10 ml 04/11/19 22:00 04/11/19 23:08 Sodium Chloride Flush Syringe 10 Ml IV 10 ml BID LIONEL Administration Sodium Chloride 10 ml 04/11/19 15:09 Sodium Chloride Flush Syringe 10 Ml IV PRN PRN LINE FLUSH
[2019-04-12] MEDS ORDERED: SODIUM CHLORIDE 0.9% 1000 ML 1,000 ML IV SCH (08:00)
[2019-04-12] MEDS ORDERED: LIDOCAINE (2%) 20 MG/1 ML VIAL 20 ML MDV INFILTRATI ONE (08:07)
[2019-04-12] MEDS ORDERED: WATER FOR IRRIG STERILE 250 ML BOTTLE IR ONE (08:08)
[2019-04-12] MEDS ORDERED: PROPOFOL 200 MG/20 ML VIAL IV ONE (08:08)
[2019-04-12] MEDS ORDERED: ALBUTEROL 8.5 GM INHALATION IH ONE (08:12)
--- NOTE | 2019-04-12 08:51 | Anesthesia Day of Surgery ---
Anesthesia Day of Surgery - Day of Surgery Patient Examined: Yes Patient H&P Reviewed: Yes Patient is NPO: Yes Beta Blockers: No Cardiac Clearance: No Pulmonary Clearance: No Yared's Test: N/A
--- NOTE | 2019-04-12 08:51 | Operative Report ---
Operative Report Operative Report: DOS: 04/12/2019 Endoscopist: Jose De Jesus Miller MD EGD with biopsies REPORT PREOPERATIVE DIAGNOSIS and POSTOPERATIVE DIAGNOSIS: GI bleed ESTIMATED BLOOD LOSS: minimal DESCRIPTION OF PROCEDURE: A high-resolution EGD scope was passed through the oropharynx, esophagus, stomach. The scope was carefully withdrawn. Retroflexion was performed in the stomach. At the end of the procedure, the scope was cleaned using normal technique. Vital signs monitored continuously throughout. SEDATION: Provided by Anesthesiology Services. COMPLICATIONS: None. FINDINGS: 1. Erythematous mucosa in the antrum without any clear ulcer noted. 2. In the mid greater curve of the gastric body, there was a large deep cratered ulcer, nonbleeding and about 2.5 cm in size. Biopsies were obtained from the edge of the ulcer. There was food and debri in the cratered collected and cleared out for better visualization. 3 3. The rest of the gastric body showed erythematous mucosa with thickened folds. Biopsies were obtained from the antrum and the gastric body. 4. Irregular z-line at 40 cm 5. Normal duodenum exam to the 2nd part of the duodenum. 6. The esophagus appeared normal. RECOMMENDATIONS: 1. Resume clear liquid diet. 2. Recommend protonix PO bid. 3. Avoid NSAIDS. 4. Follow up pathology results to rule out any malignancy related to the large gastric ulcer. 5. Monitor H/H. 6. Will follow.
--- NOTE | 2019-04-12 08:53 | Anesthesia Consultation ---
Anesthesia Consult and Med Hx - Airway Anesthetic Teeth Evaluation: Poor ROM Head & Neck: Adequate Mental/Hyoid Distance: Adequate Mallampati Class: Class II Intubation Access Assessment: Probably Good - Pulmonary Exam CTA: No (Danilo Wheezing, Albuterol iii puffs) - Cardiac Exam Cardiac Exam: RRR - Pre-Operative Health Status ASA Pre-Surgery Classification: ASA3 Proposed Anesthetic Plan: General, MAC - Pulmonary Hx Smoking: Yes (Albuterol inhaleer iii puffs administered prior to induction) Hx Asthma: No Hx Pneumonia: No - Cardiovascular System Hx Hypertension: Yes - Central Nervous System Hx Psychiatric Problems: No - Gastrointestinal Hx Ulcer: Yes (Ulcer noted during exam) - Other Systems Hx Cancer: Yes (H/O throat Ca. S/P radiation)
--- NOTE | 2019-04-12 09:09 | Post Anesthesia Evaluation ---
- Post Anesthesia Evaluation Patient Participated: Yes Airway Patent: Yes Stable Respiratory Function: Yes Nausea/Vomiting: No Temp > 96.8F: Yes Pain Manageable: Yes Adequeate Hydration: Yes Anesthesia Complications: No Block Receding Appropriately: Not Applicable Patient on Ventilator: No Other Comments: Awake, alert, hemodynamically stable, Cond. satis
[2019-04-12] MEDS: PANTOPRAZOLE 40 MG TAB PO SCH (09:42)
[2019-04-12] MEDS: NICOTINE 14 MG/24 HR PATCH TD SCH (09:42)
[2019-04-12] MEDS ORDERED: FLU VACC QUAD 2019-20 (3 YR UP)/PF 60 MCG/0.5 ML SYRINGE IM ONE (12:00)
--- NOTE | 2019-04-12 15:00 | Consultation ---
History of Present Illness - [facility] Consult date: 04/12/19 Consult reason: joint pain History of present illness: 57 y/o male with c/o left 3rd finger deformity for past 5 wks, states fell and never went to the doctor for it...admitted now for another reason and discovere d/informed about previous injury xrays taken Past History Past Medical History: cancer, hypertension Past Surgical History: total knee replacement Social history: , smoking Family history: hypertension Medications and Allergies Allergies Allergy/AdvReac Type Severity Reaction Status Date / Time No Known Allergies Allergy Verified 06/07/17 09:54 Home Medications Medication Instructions Recorded Confirmed Last Taken Type Bisoprolol/Hctz [Ziac 2.5-6.25] 1 each PO DAILY 04/11/19 04/11/19 04/02/19 History LORazepam [Ativan] 1 mg PO QHS 04/11/19 04/11/19 04/02/19 History Active Meds: Active Medications Acetaminophen (Tylenol) 650 mg PO Q4H PRN PRN Reason: Pain MILD(1-3)/Fever >100.5/DONIS Albuterol (Proventil) 2.5 mg IH Q4HRT PRN PRN Reason: Shortness Of Breath Enoxaparin Sodium (Lovenox) 40 mg SUB-Q QDAY@2200 LIONEL Sodium Chloride (Nacl 0.9% 1000 Ml) 1,000 mls @ 50 mls/hr IV DIRECT [facility] Last Infusion: 04/12/19 09:36 Dose: Infused Documented by: Nicotine (Habitrol) 14 mg TD QDAY [facility] Last Admin: 04/12/19 09:42 Dose: 14 mg Documented by: Ondansetron HCl (Zofran) 4 mg IV Q8H PRN PRN Reason: Nausea And Vomiting Pantoprazole Sodium (Protonix) 40 mg PO QDAY [facility] Last Admin: 04/12/19 09:42 Dose: 40 mg Documented by: Sodium Chloride (Sodium Chloride Flush Syringe 10 Ml) 10 ml IV BID [facility] Last Admin: 04/12/19 09:36 Dose: 10 ml Documented by: Sodium Chloride (Sodium Chloride Flush Syringe 10 Ml) 10 ml IV PRN PRN PRN Reason: LINE FLUSH Physical Examination - Physical exam Narrative exam: left hand - +++ deformity at PIP joint 3rd digit, mild swelling Eyes: PERRL ENT: Positive: clear oral mucosa Respiratory effort: normal Respiratory: bilateral: CTA Rhythm: regular Heart Sounds: Positive: S1 & S2 General gastrointestinal: Positive: soft, non-tender, non-distended, normal bowel sounds Integumentary: clear, warm, dry Neurologic: Positive: CNII-XII intact, moves all extremities, gait normal. 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
[2019-04-12] MEDS: ENOXAPARIN 40 MG/0.4 ML INJ SUB-Q SCH (23:34)
[2019-04-13 05:11] LABS: Hematocrit 35.1 % (35.5-45.6); Hemoglobin 11.9 gm/dl (11.8-15.2); Mean Corpuscular HGB Conc 34 % (32-34); Mean Corpuscular Volume 97 fl (84-94); Platelet Count 381 K/mm3 (140-440); Red Blood Count 3.63 M/mm3 (3.65-5.03); Red Cell Distribution Width 15.5 % (13.2-15.2)
[2019-04-13] MEDS: NICOTINE 14 MG/24 HR PATCH TD SCH (10:01)
[2019-04-13] MEDS: PANTOPRAZOLE 40 MG TAB PO SCH (10:01)
--- NOTE | 2019-04-13 10:06 | Gastroenterology Progress Note ---
Assessment and Plan # Abdominal pain # Nausea # Abnormal CT showing gastric wall thickening. # Moderately severe gastritis with a large deep cratered nonbleeding ulcer in the gastric body s/p bx. pending pathology results. - abdominal pain much improved and tolerating diet. Rec - ok for discharge on PPI PO bid for next 6-8 weeks. - will need follow up in GI clinic in 2-3 weeks and repeat EGD in 8-12 weeks. - will need to also follow up on the pathology results. - counseled on smoking cessation. - will sign off. Please call if needed. Subjective Date of service: 04/13/19 Interval history: Patient did well with diet yesterday without nausea/vomiting. Abdominal pain much improved. Objective - Constitutional Vitals: Temp Pulse Resp BP Pulse Ox 98.0 F 105 H 22 136/81 93 04/13/19 06:13 04/13/19 06:13 04/13/19 06:13 04/13/19 06:13 04/13/19 06:13 General appearance: no acute distress - EENT Eyes: EOM intact ENT: hearing intact - Neck Neck: supple - Respiratory Respiratory effort: normal - Cardiovascular Rhythm: regular Heart Sounds: Present: S1 & S2 - Gastrointestinal General gastrointestinal: Present: soft, non-tender, non-distended - Integumentary Integumentary: Present: clear, warm - Neurologic Neurological: alert and oriented x3 - Labs CBC & Chem 7: 04/13/19 04:37 04/12/19 04:55 Labs: Laboratory Results - last 24 hr 04/13/19 04:37 WBC 3.9 L RBC 3.63 L Hgb 11.9 Hct 35.1 L MCV 97 H MCH 33 H MCHC 34 RDW 15.5 H Plt Count 381
[2019-04-13] MEDS: SODIUM CHLORIDE 0.9% 1000 ML 1,000 ML IV SCH (12:00)
[2019-04-13] MEDS ORDERED: ceFAZolin/STERILE WATER 2 GM/20 ML SYRINGE IV NR (12:15)
[2019-04-13] MEDS ORDERED: LIDOCAINE (1%) 10 MG/1 ML VIAL 20 ML MDV ONE (12:22)
[2019-04-13] MEDS ORDERED: BUPIVACAINE/PF (0.5%) 5 MG/1 ML 30 ML VIAL INFILTRATI ONE ×4 (12:22→14:04)
[2019-04-13] MEDS ORDERED: LIDOCAINE (1%) 10 MG/1 ML VIAL 20 ML MDV INFILTRATI ONE ×2 (13:34)
--- NOTE | 2019-04-13 14:27 | Procedure Note ---
Date of procedure: 04/13/19 Pre-op diagnosis: 5-week-old proximal interphalangeal joint dislocation left third finger Post-op diagnosis: same Procedure: Open reduction left third finger PIP joint Procedure The patient was brought to the OR and placed on the OR table in supine position following a timeout procedure to identify the patient and the correct operative site 1% lidocaine was injected into the third finger along the mid lateral line following this a a tourniquet was fashioned from a sterile glove this was then placed on the third finger and rolled approximately A bayonet-type incision was made over the proximal interphalangeal joint this was taken down through skin a nd subcutaneous the extensor tendon was identified using a longitudinal incision on the extensor tendon and all fluid this was then taken down to the dislocation site patient was noted to have some scar tissue which show was blocking the reduction following the removal of the scar tissue to Gordon retractors were placed underneath the proximal phalanx and the finger was then reduced this was then day PIP joint was then taken through a range of motion and was found to be stable and therefore a K wire was not necessary next the extensor tendon was repaired using number #5 suture being about 5-0 nylon in an interrupted pattern with 3-0 nylon was applied to the skin routine postoperative dressings were applied as well as a aluminum splint with the finger in slight flexion patient tolerated the procedure there were no complications he was taken back to the floor and a stable condition Anesthesia: local Surgeon: ALEXANDER BARRIGA Estimated blood loss: minimal Pathology: none Condition: stable Disposition: floor
--- NOTE | 2019-04-13 14:58 | XRay Report ---
LEFT FINGERS, 2 VIEWS INDICATION: LT 3RD DIGIT ORIF OF OLD DISLOCATION//FINGER PAIN. COMPARISON: 04/11/2019 IMPRESSION: The posterior dislocation at the third PIP joint has been reduced and is now anatomic in alignment. No obvious fracture is identified on the given images. The soft tissues are unremarkable. Signer Name: Peter Cuevas Jr, MD Signed: 04/13/2019 2:53 PM Workstation Name: [id number]
--- NOTE | 2019-04-13 19:59 | Progress Note ---
Assessment and Plan Assessment and plan: 58-year-old man with history of hypertension and thyroid cancer in remission. Patient presents to the hospital with nausea and abdominal pain x5 weeks. Is complaining of sharp pain in the mid abdomen that radiates all over his abdomen., Poor p.o. intake. He admits to pain to his left middle finger after a fall/trauma to his last week 5 weeks ago, it has been swollen and deformed but not painful. He admits he has not seen a doctor since he got sick. Past medical history; hypertension, current everyday smoker CT abdomen and pelvis; shows gastric wall thickening Left fingers x-ray; severe osteopenia, posterior dislocations identified in the PIP joint of the third digit, there is no obvious fracture, the remaining joint spaces anatomic in alignment although mild diffuse osteoarthritic changes are noted, the soft tissues are unremarkable PUD.h pylori on PPI, started double abx therapy x 2 weeks outpatient gi fup Left middle finger dislocation at PIP Orthopedic surgery consult appreciated, sp open reduction 04/13 Moderate malnutrition Dietitian consult Tobacco abuse/dependence Smoking cessation counseling performed for 10 minutes, nicotine patches when n ecessary DVT prophylaxis Lovenox History Interval history: Review of systems Constitutional: No fevers, no malaise, no joint pains CVS: No chest pain, no orthopnea, no pedal edema GI: C nausea and mid abdominal pain are improved Respiratory: No shortness of breath, no wheezing, no coughing Hospitalist Physical - Physical exam Narrative exam: General.: Appears well,, nontoxic HEENT: Moist mucous membranes, extraocular muscles intact, no lymphadenopathy Neck: supple Cardiac: S1-S2 heard Lungs: clear to auscultation bilaterally Abdomen: soft , nontender, nondistended, bowel sounds positive Extremities: no edema clubbing or cyanosis deformed L 3rd finger Skin: no rash or lesions Neurologic: no gross focal deficits Psych: calm, and cooperative - Constitutional Vitals: Temp Pulse Resp BP Pulse Ox 98.6 F 119 H 18 163/96 99 04/13/19 17:44 04/13/19 17:44 04/13/19 17:44 04/13/19 17:44 04/13/19 17:44 General appearance: Present: mild distress, cachectic Results - Labs CBC & Chem 7: 04/13/19 04:37 04/12/19 04:55 Labs: Laboratory Last Values WBC 3.9 K/mm3 (4.5-11.0) L 04/13/19 04:37 RBC 3.63 M/mm3 (3.65-5.03) L 04/13/19 04:37 Hgb 11.9 gm/dl (11.8-15.2) 04/13/19 04:37 Hct 35.1 % (35.5-45.6) L 04/13/19 04:37 MCV 97 fl (84-94) H 04/13/19 04:37 MCH 33 pg (28-32) H 04/13/19 04:37 MCHC 34 % (32-34) 04/13/19 04:37 RDW 15.5 % (13.2-15.2) H 04/13/19 04:37 Plt Count 381 K/mm3 (140-440) 04/13/19 04:37 Lymph % (Auto) 7.8 % (13.4-35.0) L 04/12/19 04:55 [place] % (Auto) 12.5 % (0.0-7.3) H 04/12/19 04:55 Eos % (Auto) 4.8 % (0.0-4.3) H 04/12/19 04:55 Baso % (Auto) 0.7 % (0.0-1.8) 04/12/19 04:55 Lymph # 0.4 K/mm3 (1.2-5.4) L 04/12/19 04:55 [place] # 0.6 K/mm3 (0.0-0.8) 04/12/19 04:55 Eos # 0.2 K/mm3 (0.0-0.4) 04/12/19 04:55 Baso # 0.0 K/mm3 (0.0-0.1) 04/12/19 04:55 Seg Neutrophils % 74.2 % (40.0-70.0) H 04/12/19 04:55 Seg Neutrophils # 3.7 K/mm3 (1.8-7.7) 04/12/19 04:55 Sodium 139 mmol/L (137-145) 04/12/19 04:55 Potassium 4.0 mmol/L (3.6-5.0) 04/12/19 04:55 Chloride 102.4 mmol/L (98-107) 04/12/19 04:55 Carbon Dioxide 22 mmol/L (22-30) 04/12/19 04:55 Anion Gap 19 mmol/L 04/12/19 04:55 BUN 7 mg/dL (9-20) L 04/12/19 04:55 Creatinine 0.7 mg/dL (0.8-1.5) L 04/12/19 04:55 Estimated GFR > 60 ml/min 04/12/19 04:55 BUN/Creatinine Ratio 10 % 04/12/19 04:55 Glucose 100 mg/dL (75-100) 04/12/19 04:55 Calcium 8.7 mg/dL (8.4-10.2) 04/12/19 04:55 Magnesium 2.20 mg/dL (1.7-2.3) 04/11/19 10:37 Total Bilirubin 0.30 mg/dL (0.1-1.2) 04/12/19 04:55 AST 11 units/L (5-40) 04/12/19 04:55 ALT 8 units/L (7-56) 04/12/19 04:55 Alkaline Phosphatase 62 units/L (35-129) 04/12/19 04:55 Total Protein 6.2 g/dL (6.3-8.2) L 04/12/19 04:55 Albumin 3.4 g/dL (3.9-5) L 04/12/19 04:55 Albumin/Globulin Ratio 1.2 % 04/12/19 04:55 Lipase 23 units/L (13-60) 04/11/19 10:37 Urine Color Straw (Yellow) 04/11/19 12:37 Urine Turbidity Clear (Clear) 04/11/19 12:37 Urine pH 7.0 (5.0-7.0) 04/11/19 12:37 Ur Specific [place] 1.005 (1.003-1.030) 04/11/19 12:37 Urine Protein <15 mg/dl mg/dL (Negative) 04/11/19 12:37 Urine Glucose (UA) Neg mg/dL (Negative) 04/11/19 12:37 Urine Ketones Neg mg/dL (Negative) 04/11/19 12:37 Urine Blood Neg (Negative) 04/11/19 12:37 Urine Nitrite Neg (Negative) 04/11/19 12:37 Urine Bilirubin Neg (Negative) 04/11/19 12:37 Urine Urobilinogen < 2.0 mg/dL (<2.0) 04/11/19 12:37 Ur Leukocyte Esterase Neg (Negative) 04/11/19 12:37 Urine WBC (Auto) 1.0 /HPF (0.0-6.0) 04/11/19 12:37 Urine RBC (Auto) 1.0 /HPF (0.0-6.0) 04/11/19 12:37 U Epithel Cells (Auto) < 1.0 /HPF (0-13.0) 04/11/19 12:37 Urine Bacteria (Auto) 1+ /HPF (Negative) 04/11/19 12:37 Active Medications - Current Medications Current Medications: Generic Name Dose Route Start Last Admin Trade Name Freq PRN Reason Stop Dose Admin Acetaminophen 650 mg 04/11/19 15:09 Tylenol PO Q4H PRN Pain MILD(1-3)/Fever >100.5/DONIS Albuterol 2.5 mg 04/11/19 15:09 Proventil IH Q4HRT PRN Shortness Of Breath Amoxicillin 1,000 mg 04/13/19 22:00 Trimox PO Q12HR LIONEL Cefazolin Sodium 2 gm 04/13/19 12:15 04/13/19 12:25 Ancef/Sterile Water 2 Gm/20 Ml IV 04/13/19 23:59 2 gm PREOP NR Administration Clarithromycin 500 mg 04/13/19 22:00 Biaxin PO Q12HR LIONEL Enoxaparin Sodium 40 mg 04/12/19 22:00 04/12/19 23:34 Lovenox SUB-Q 40 mg QDAY@2200 LIONEL Administration Sodium Chloride 1,000 mls @ 50 mls/hr 04/12/19 08:00 04/12/19 09:36 Nacl 0.9% 1000 Ml IV Infused DIRECT LIONEL Infusion Sodium Chloride 1,000 mls @ 75 mls/hr 04/13/19 11:30 04/13/19 12:00 Nacl 0.9% 1000 Ml IV 75 mls/hr DIRECT LIONEL Administration Nicotine 14 mg 04/12/19 10:00 04/13/19 10:01 Habitrol TD 14 mg QDAY LIONEL Administration Ondansetron HCl 4 mg 04/11/19 15:09 Zofran IV Q8H PRN Nausea And Vomiting Pantoprazole Sodium 40 mg 04/12/19 10:00 04/13/19 10:01 Protonix PO 40 mg QDAY LIONEL Administration Sodium Chloride 10 ml 04/11/19 22:00 04/13/19 10:02 Sodium Chloride Flush Syringe 10 Ml IV 10 ml BID LIONEL Administration Sodium Chloride 10 ml 04/11/19 15:09 Sodium Chloride Flush Syringe 10 Ml IV PRN PRN LINE FLUSH Nutrition/Malnutrition Assess - Dietary Evaluation Nutrition/Malnutrition Findings: Nutrition Notes Start: 04/12/19 10:09 Freq: Status: Active Protocol: Document 04/12/19 10:09 CANDICE (Rec: 04/12/19 11:[id number]) Co-Sign 04/12/19 10:09 LP Nutrition Notes Need for Assessment generated from: commercial review appraiser,MST Initial or Follow up Assessment Current Diagnosis Hypertension,Malnutrition Other Pertinent Diagnosis Stomach ulcer, cancer ( remission) Current Diet Cardiac Labs/Tests BUN 7 Creatinine .7 Total Pro 6.2 Alb 3.4 Pertinent Medications Reviewed Height 5 ft 8 in Weight 51 kg Usual Body Weight 62 kg [place] Body Weight (kg) 70.00 BMI 17.1 Intake Prior to Admission Fair Weight change and time frame 17% in 6 weeks - severe Weight Status Underweight Subjective/Other Information Pt reports having a strong appeitite and hungry. Pt reports weight loss due to past cancer, now in remission, and abdominal pain rt stomach ulcer. Pt reports less of an appetite OPENER. Burn Absent Trauma Absent Minimum of two criteria Yes Energy Intake (non-severe) <75% Estimated Energy Requirement >7 days Interpretation of Weight Loss (severe) >7.5% in 3 months Body Fat Depletion Mild depletion (non-severe) Muscle Mass Mild Depletion (non-severe) #1 Nutrition Diagnosis Malnutrition Etiology Poor appetite, abdominal pain, and stomach ulcer As Evidenced by Signs and Symptoms 17% wt loss in 6 weeks, mild fat and muscle depletion, <75% energy intake within past 7 days Is patient on ventilator? No Is Patient Ambulatory and/or Out of Bed Yes REE-([place]-St. Jeor-ambulatory/OOB) [ 1689.350 NUTR.MSJOOB] Kcal/Kg value to use for calculation 40 Approximate Energy Requirements Using 2039 kcal/Kg Calculation Used for Recommendations Kcal/kg Additional Notes PRO 61-77g (1.2-1.5g/kg) Fluid 1ml/kcal Nutrition Intervention Change Diet Order: Continue cardiac Add Supplement/Snack (indicate name/kcal Ensure Enlive daily /protein ) Provides kCal: 350 Provides Protein (gm) 20 Goal #1 Consume >85% energy and protein needs via PO and ONS Anticipated Discharge Needs: Cardiac, Ensure Enlive daily Follow-Up By: 04/16/19 Additional Comments FU for intakes
[2019-04-13] MEDS: ENOXAPARIN 40 MG/0.4 ML INJ SUB-Q SCH (22:22)
[2019-04-13] MEDS: AMOXICILLIN 500 MG CAP PO SCH (22:22)
[2019-04-13] MEDS: CLARITHROMYCIN 500 MG TAB PO SCH (22:23)
[2019-04-13] MEDS ORDERED: MORPHINE 2 MG/1 ML INJ IV PRN (23:11)
[2019-04-13] MEDS: oxyCODONE /ACETAMINOPHEN 5-325MG TAB PO PRN (23:24)
[2019-04-14] MEDS: SODIUM CHLORIDE 0.9% 1000 ML 1,000 ML IV SCH (03:06)
[2019-04-14 05:42] VITALS: BP 160/94
[2019-04-14] MEDS: oxyCODONE /ACETAMINOPHEN 5-325MG TAB PO PRN (07:31)
[2019-04-14] MEDS: CLARITHROMYCIN 500 MG TAB PO SCH (09:31)
[2019-04-14] MEDS: NICOTINE 14 MG/24 HR PATCH TD SCH (09:32)
[2019-04-14] MEDS: PANTOPRAZOLE 40 MG TAB PO SCH (09:32)
[2019-04-14] MEDS: AMOXICILLIN 500 MG CAP PO SCH (09:32)
--- NOTE | 2019-04-14 10:36 | Discharge Summary ---
Providers - Providers Date of Admission: 04/11/19 15:09 Attending physician: GENNY MOREIRA MD 04/11/19 14:35 Consult to Physician [CONS] Urgent Comment: Consulting Provider: DAISHA ACE Physician Instructions: Reason For Exam: abnormal stomach on ct 04/12/19 07:53 Consult to Physician [CONS] Routine Comment: called office/ millicent Consulting Provider: ALEXANDER BARRIGA Physician Instructions: Reason For Exam: left middle finger dislocation at PIP joint 04/12/19 07:54 Consult to Dietitian/Nutrition [CONS] Routine Physician Instructions: Reason For Exam: Reason for Consult: Malnutrition Primary care physician: ELECTRO PLATER Hospitalization Condition: Stable Hospital course: 58-year-old man with history of hypertension and thyroid cancer in remission. Patient presents to the hospital with nausea and abdominal pain x5 weeks. Is complaining of sharp pain in the mid abdomen that radiates all over his abdomen., Poor p.o. intake. He admits to pain to his left middle finger after a fall/trauma to his last week 5 weeks ago, it has been swollen and deformed but not painful. He admits he has not seen a doctor since he got sick. Past medical history; hypertension, current everyday smoker CT abdomen and pelvis; shows gastric wall thickening Left fingers x-ray; severe osteopenia, posterior dislocations identified in the PIP joint of the third digit, there is no obvious fracture, the remaining joint spaces anatomic in alignment although mild diffuse osteoarthritic changes are noted, the soft tissues are unremarkable PUD.h pylori started on PPI, and double abx therapy x 2 weeks outpatient gi fup Left middle finger dislocation at PIP Orthopedic surgery consult appreciated, sp open reduction 04/13, Op fup Moderate malnutrition Dietitian consult, counseled Tobacco abuse/dependence Smoking cessation counseling performed for 10 minutes, nicotine patches when necessary Preventative health counseling performed for 17 minutes DVT prophylaxis Lovenox Disposition: TO HOME OR SELFCARE Time spent for discharge: 35 minutes Core Measure Documentation - Palliative Care Palliative Care/ Comfort Measures: Not Applicable - Core Measures Any of the following diagnoses?: none Exam - Constitutional Vitals: Temp Pulse Resp BP Pulse Ox 98.4 F 123 H 18 160/94 97 04/14/19 05:21 04/14/19 05:21 04/14/19 07:31 04/14/19 05:21 04/14/19 05:21 General appearance: Present: no acute distress, well-nourished - EENT Eyes: Present: PERRL ENT: hearing intact, clear oral mucosa - Neck Neck: Present: supple, normal ROM - Respiratory Respiratory effort: normal Respiratory: bilateral: CTA - Cardiovascular Heart Sounds: Present: S1 & S2. Absent: rub, click - Extremities Extremities: pulses symmetrical, No edema Peripheral Pulses: within normal limits - Abdominal General gastrointestinal: Present: soft, non-tender, non-distended, normal bowel sounds Male genitourinary: Present: normal - Integumentary Integumentary: Present: clear, warm, dry - Musculoskeletal Musculoskeletal: gait normal, strength equal bilaterally - Psychiatric Psychiatric: appropriate mood/affect, intact judgment & insight - Neurologic Neurologic: CNII-XII intact, moves all extremities Plan Follow up with: PRIMARY CARE,MD [Primary Care Provider] - 3-5 Days Prescriptions: Clarithromycin [Biaxin] 500 mg PO Q12HR #26 tablet Nicotine [Habitrol] 14 mg TD QDAY #30 patch Pantoprazole [Protonix TAB] 40 mg PO QDAY #30 tablet Amoxicillin [Trimox CAP] 1,000 mg PO Q12HR #52 capsule Bisoprolol/Hctz [Ziac 2.5-6.25] 1 each PO DAILY #30
[2019-04-14] MEDS ORDERED: POLYETHYLENE GLYCOL 3350 17 GM POWDER PO SCH (12:00)
--- NOTE | 2019-04-14 13:20 | Gastroenterology Progress Note ---
Assessment and Plan GI: stable overnight w/o signs bleeding - continue current meds and diet - ok to d/c, will sign off Subjective Date of service: 04/14/19 Interval history: - no signs bleeding overnight Objective - Constitutional Vitals: Temp Pulse Resp BP Pulse Ox 98.4 F 123 H 18 160/94 97 04/14/19 05:21 04/14/19 05:21 04/14/19 07:31 04/14/19 05:21 04/14/19 05:21 General appearance: no acute distress - EENT Eyes: PERRL - Respiratory Respiratory: bilateral: CTA - Cardiovascular Rhythm: regular Heart Sounds: Present: S1 & S2 - Gastrointestinal General gastrointestinal: Present: soft, non-tender, non-distended - Labs CBC & Chem 7: 04/13/19 04:37 04/12/19 04:55
== END 2019-04-14 12:47 | disposition home or self-care (01) ==
LOC: ED 09:15 → 3A 15:09
PROVIDERS: ADMIT Internal Medicine; ATTEND Internal Medicine
DX: K92.2 Gastrointestinal hemorrhage, unspecified (principal); I10 Essential (primary) hypertension; F17.200 Nicotine dependence, unspecified, uncomplicated; S63.283A Dislocation of proximal interphalangeal joint of left middle finger, initial encounter; W19.XXXA Unspecified fall, initial encounter; Y93.89 Activity, other specified; Y92.89 Other specified places as the place of occurrence of the external cause; Y99.8 Other external cause status; Z82.49 Family history of ischemic heart disease and other diseases of the circulatory system; Z79.899 Other long term (current) drug therapy; Z85.9 Personal history of malignant neoplasm, unspecified; Z23 Encounter for immunization
CPT/HCPCS: 26735; 36415; 43239; 73140; 74177; 80053; 81001; 83690; 83735; 85025; 85027; 88305; 88342; 90686; 93005; 93010; 96372; 96374; 96375; 99406; C9113; G0008; G0378; J0690; J1650; J2270; J2405; J2704; J7030; Q9967; 90471